=== PATIENT | female | born 1940 | race Caucasian/White ===

== ENCOUNTER → 2016-07-03 | Outpatient (CLI) | payer MEDICARE ==
[2016-07-03 11:10] LABS: Anion Gap 12 mmol/L; Blood Urea Nitrogen 18 mg/dL (7-17); Carbon Dioxide 28 mmol/L (22-30); Chloride 106 mmol/L (98-107); Non-African American GFR(MDRD) >60 (>60 ml/min/1.73 sqM); Potassium 4.9 mmol/L (3.5-5.1); Sodium 146 mmol/L (137-145)
== END | disposition home or self-care (01) ==
LOC: LABPAT 10:19
PROVIDERS: ATTEND Obstetrics & Gynecology
DX: Z01.818 Encounter for other preprocedural examination (principal)
CPT/HCPCS: 80051; 82565; 83735; 84520; 87077; 87086; 87186

== ENCOUNTER 2016-07-11 06:10 | Day surgery (SDC) | payer MEDICARE ==
--- NOTE | 2016-07-06 15:01 | HP ---
DATE OF ADMISSION: 07/11/2016 HISTORY OF PRESENT ILLNESS: This is a 75-year-old white female, 3, para 2-0-1-2 with known pelvic organ prolapse, evolving and progressing over the past several years. The patient is requesting vaginal hysterectomy and cystocele repair. She has a bulge that is continuously present in her undergarments causing irritation and pressure. At times she has to reduce the bulge in order to thoroughly empty bladder and/or bowel. She is menopausal and not taking hormone replacement therapy. She denies postmenopausal bleeding. She is not sexually active at this time. Review of systems is otherwise negative. 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 PAST SURGICAL HISTORY: Significant for breast aspiration, breast biopsies, breast cystectomy, cholecystectomy, foot surgery of the right foot for fracture, heel spur removal of the left foot, left knee arthroscopy, left knee replacement, lithotripsy, tubal ligation, and right salpingo-oophorectomy for ectopic . CURRENT MEDICATIONS: 1. Aleve 220 mg capsules twice daily. 2. Aspirin daily. 3. Calcium supplement daily. 4. Atorvastatin 80 mg pills at bedtime. 5. Timolol ophthalmic drops. 6. Travatan 0.004% ophthalmic drops in the evening. ALLERGIES INCLUDE PENICILLIN to which she reports diarrhea and vomiting, no other known medical allergies. FAMILY HISTORY: Significant for breast cancer, diabetes, and hypertension. Reproductive history is significant for 2 term vaginal deliveries, uncomplicated, along with ectopic treated by salpingectomy. SOCIAL HISTORY: Patient has never been a smoker. She drinks alcohol occasionally. She is retired. On exam, this is a pleasant, elderly female, 5 feet 7 inches, 144 pounds, BMI 22. Blood pressure 132/98 in the seated position. The general physical exam is within normal limits. The chest is clear to auscultation in all soriano anteriorly and posteriorly. Neck exam reveals no lymphadenopathy, normal sized thyroid, no obvious masses, good range of motion. There is good dentition noted. HEENT examination is otherwise negative. Breasts are atrophic, bilaterally symmetric, no skin dimpling, nipple discharge, axillary adenopathy or discernible lesions or masses. The cardiac exam reveals regular rate and rhythm with no murmur, click or rub. The abdomen is soft and nontender, no organosplenomegaly, no CVA tenderness, active bowel sounds, no hernias present. EXTERNAL GENITALIA: Normal in appearance for age, overall atrophic, with a grade 4 cystocele and a grade 3 to 4 uterine prolapse noted. There is no obvious rectocele noted. The cervix is multiparous in appearance, without lesions, masses or discharge. Adnexa are smooth small, nontender, mobile and equal bilaterally. Rectal exam reveals good sphincter tone, no hemorrhoids, no rectal masses, FIT negative stool. IMPRESSION: Increasingly symptomatic cystocele and uterine prolapse, patient at this time, requesting vaginal hysterectomy and cystocele repair. PLAN: I have reviewed with the patient in detail the risks, benefits, and alternatives to this surgery. She is declining the option of pessary use. The ACOG pamphlet have been given to the patient for her review. We have reviewed the risks to include, but not be exclusive of bleeding, infection, perforation or damage to the bowel, bladder, ureters, blood vessels, or indeed any pelvic or abdominal organs. We reviewed the unlikely but possible need for blood transfusion and the infectious diseases to which she would be exposed including hepatitis as well as HIV. A second opinion has been offered and declined. I believe the patient understands these risks and considerations, along with the risks of anesthesia, aspiration, nerve damage or even . Second opinion has been offered and declined. All questions answered. We will therefore proceed with vaginal hysterectomy and anterior colporrhaphy on Sabrina on Sunday07/11/[address] [facility] [place].
[2016-07-10 07:54] VITALS: BMI 22.1
[~2016-07-11 06:10] MED LIST: CLINDAMYCIN 900 MG in DEXTROSE 5% IN WATER 50 ML IVPB ONE; DEXAMETHASONE SOD PHOSPHATE 10 MG/ML 1 ML VIAL IV ONE; HYDROmorphone 1 MG/ML 1 ML SYRINGE IVP PRN; MIDAZOLAM 2 MG/2 ML VIAL IV PRN; ONDANSETRON 4 MG/2 ML VIAL IVP ONE
[2016-07-11] MEDS: LACTATED RINGERS 1,000 ML IV SCH ×2 (06:53→10:39)
[2016-07-11] MEDS ORDERED: LIDOCAINE 1% 20 ML VIAL (10MG/ML) FOR IV START INTRADERMA ONE (06:54)
[2016-07-11 07:03] LABS: Basophils % (A) 1 %; CH 29.3; CHCM 33.3; Eosinophils # (A) 0.2 k/uL (0-0.7); Eosinophils % (A) 3 %; HCT 38.9 % (34.0-46.0); HDW 2.54; HGB 12.8 gm/dL (11.4-16.0); Luc # (Auto) 0.14; Luc % (Auto) 3; Lymphocytes # (A) 1.1 k/uL (1.0-4.8); Lymphocytes % (A) 22 %; MCH 29.2 pg (25.0-35.0); MCV 88.4 fL (80.0-100.0); Mean Platelet Volume 9.2; Monocytes # (A) 0.3 k/uL (0-1.0); Monocytes % (A) 6 %; Neutrophils # (A) 3.3 k/uL (1.3-7.7); Neutrophils % (A) 66 %; RBC 4.39 m/uL (3.80-5.40); RDW 14.1 % (11.5-15.5); WBC (Perox) 5.35
[2016-07-11] MEDS ORDERED: KETAMINE 10 MG/ML 20 ML VIAL ONE (07:22)
[2016-07-11] MEDS ORDERED: MIDAZOLAM 2 MG/2 ML VIAL ONE (07:22)
[2016-07-11] MEDS ORDERED: MORPHINE SULFATE (PF) 0.3 MG/0.3 ML SYR ONE (07:22)
[2016-07-11] MEDS ORDERED: PROPOFOL 10 MG/ML 20 ML VIAL IV ONE (07:22)
[2016-07-11] MEDS ORDERED: KETOROLAC 30 MG/ML 1 ML VIAL ONE (07:22)
[2016-07-11] MEDS ORDERED: fentaNYL (PF) 50 MCG/ML 2 ML AMP ONE (07:22)
[2016-07-11] MEDS ORDERED: VASOPRESSIN 20 UNIT/ML 1 ML VIAL SQ ONE (07:40)
[2016-07-11] MEDS ORDERED: BACITRACIN 500 UNIT/GM OINT 28.4 GM TUBE TOPICAL ONE (07:48)
[2016-07-11] MEDS ORDERED: LACTATED RINGERS 1,000 ML IV ONE (08:11)
[2016-07-11] MEDS ORDERED: ZOLPIDEM 5 MG TAB PO PRN (08:31)
[2016-07-11] MEDS ORDERED: METOCLOPRAMIDE 5 MG/ML 2 ML VIAL IVP PRN (08:31)
[2016-07-11] MEDS ORDERED: Acetaminophen-Codeine 300-30mg TAB PO PRN (08:31)
[2016-07-11] MEDS ORDERED: SIMETHICONE 80 MG CHEWABLE PO PRN (08:31)
--- NOTE | 2016-07-11 08:31 | P.OP ---
Date of Procedure: 07/11/16 Preoperative Diagnosis: Increasingly symptomatic grade 3 uterine prolapse, grade 4 cystocele. Postoperative Diagnosis: Normal-appearing atrophic ovaries bilaterally. Procedure(s) Performed: Vaginal hysterectomy, anterior repair. Anesthesia: spinal Surgeon: Anaya Grissom Automatic Developer #1: Abigail Little Estimated Blood Loss (ml): 20 IV fluids (ml): 800 Urine output (ml): 200 Pathology: other (Cervix and uterus) Condition: stable Disposition: PACU Description of Procedure: Patient is brought to the operating suite where a spinal with Duramorph is given. She's placed in the dorsal lithotomy position. Antibiotics are given. Stockings placed on the legs per protocol. The appropriate timeout is performed to assure proper patient and procedural identification. Perineal body is prepped and draped in usual sterile fashion. Bladder is drained for approximately 200 mL of urine. Weighted speculum was placed into the vagina and the anterior lip of the cervix is grasped with a double-tooth tenaculum. The cervix is injected circumferentially with dilute Pitressin solution. A [place] blade scalpel is used to incise circumferentially with a V like positioning in the back. Sponge rolled finger is used to sweep the overlying mucosa from the underlying fascial plane. At all times the bladder is Well from the operative field to avoid bladder and/or ureteral injury. Peritoneum was entered posteriorly and suture tied with 2-0 Vicryl. Weighted speculum is then placed into the peritoneal cavity. The right uterosacral cardinal ligament is identified, clamped and held with a 0 Vicryl suture laterally. Same procedure is carried out on the opposite uterosacral cardinal ligament complex. Uterine vasculature is identified, clamped cut and suture ligated. 2 additional pedicles are taken superior to the vessels. Anterior peritoneum is entered. Uterus is "walked out" posteriorly. Sabiha clamps are used across the final ligaments and the specimen is removed. 0 Vicryl sutures used to tie, flashed, and retied a pedicles for excellent hemostasis. Sponge stick is then used and bilateral ovaries are inspected, noted to be atrophic and symmetric. They are left in situ as they are well suspended and normal to inspection. Speculum is then changed to the shallow billed speculum and the previously placed 2-0 Vicryl suture is brought around in a pursestring fashion to close the peritoneal cavity. Hemostasis is excellent. Anterior repair is then started. Metzenbaum scissors used in the midline to undermine the mucosa. Allis clamps are used in a fanlike fashion to hold the mucosa laterally. Sponge rolled finger is used to develop the plane between the overlying mucosa and the fascia. 2-0 Vicryl sutures used to bring the fascial edges together in an interrupted fashion. Herrera catheter is placed and urine is clear. Once the repair is completed, Metzenbaum scissors are used to trim the redundant mucosa. 2-0 Vicryl is used in a running locking fashion to close the mucosa for excellent reapproximation and hemostasis. Vagina is packed with a 1 inch iodophor gauze with basic tracing. All sponge needle and enhancement counts are correct. Total urine output 200 mL, total fluid replacement 800 mL, estimated blood loss 20 mL's. Patient is brought back to recovery room in very good condition with stable vital signs including pulse of 80, blood pressure 105 /55, respirations 16 and 97% O2 saturation.
[2016-07-11] MEDS ORDERED: NALOXONE 0.4 MG/ML 1 ML VIAL IV PRN (08:51)
[2016-07-11] MEDS ORDERED: MORPHINE SULFATE 4 MG/ML SYRINGE IVP PRN (08:51)
[2016-07-11] MEDS ORDERED: NALBUPHINE 10 MG/ML AMPUL IV PRN (08:51)
[2016-07-11] MEDS: diphenhydrAMINE 50 MG/ML 1 ML VIAL IVP PRN ×2 (12:32→19:20)
[2016-07-11] MEDS: KETOROLAC 30 MG/ML 1 ML VIAL IVP PRN (21:32)
[2016-07-11] MEDS: NITROFURANTOIN MONOHYD/M-CRYST 100 MG CAP PO SCH (21:32)
[2016-07-12] MEDS: diphenhydrAMINE 50 MG/ML 1 ML VIAL IVP PRN (01:45)
[2016-07-12] MEDS: LACTATED RINGERS 1,000 ML IV SCH (01:45)
[2016-07-12] MEDS: KETOROLAC 30 MG/ML 1 ML VIAL IVP PRN (06:43)
[2016-07-12] MEDS: ACETAMINOPHEN TAB 325 MG TAB PO PRN ×2 (06:49→10:59)
--- NOTE | 2016-07-12 07:57 | P.DS ---
Providers Date of admission: 07/11/16 Expected date of discharge: 07/12/16 Attending physician: Anaya Grissom Primary care physician: [facility] Course: This 75-year-old white female presented with an increasingly symptomatic perineal bulge. She was noted to have a grade 3 uterine prolapse, and a grade 4 cystocele. After preoperative discussion, she elected to proceed with surgical repair. Please see my dictated history and physical for further details. Patient was admitted and underwent a vaginal hysterectomy and anterior colporrhaphy under my care. She did well intraoperatively with an estimated blood loss of 20 mL's. Ovaries appeared normal to inspection and therefore were left in situ per her wishes. There were no intraoperative complications, please see my dictated operative note for details. This morning the patient is doing well. Herrera catheter has been discontinued, vaginal pack is discontinued, IV is discontinued. Diet and activity are both advanced. Her vital signs are stable and she is afebrile. There is only scant vaginal drainage noted. Bladder training has commenced. Abdomen is soft, nontender, active bowel sounds, no CVA tenderness. Extremities reveal no edema. Chest is clear. Bladder training has commenced at this time. Patient will be monitored through the day, and if post void residuals are low will be discharged home later today. I have reminded her no intercourse, tampons or douching. She will resume all of her home medications at this point. She will use over-the- counter Aleve or Advil as needed for pain, 2 pills with abundant fluids. She will call with any fevers shakes or chills, foul smelling or copious vaginal drainage, with any pain not alleviated by [id number] medications, or indeed with any concerns. Patient Condition at Discharge: Good Plan - Discharge Summary Discharge Medication List Aspirin 81 mg PO DAILY 07/10/16 [History] Atorvastatin [Lipitor] 80 mg PO HS 07/10/16 [History] Calcium Carbonate [Calcium] 600 mg PO DAILY 07/10/16 [History] Naproxen Sodium [Aleve] 220 mg PO BID PRN 07/10/16 [History] Nitrofurantoin Monohyd/M-Cryst [Macrobid] 100 mg PO Q12HR 07/10/16 [History] Timolol 0.25% Ophth Soln [Timoptic 0.25% Ophth Soln] 1 drop BOTH EYES BID [History] Travoprost [Travatan Z 0.004%] 1 drop BOTH EYES DAILY 07/10/16 [History] Vit A/Vit C/Vit E/Zinc/Copper [ICAPS SOFTGEL] 1 cap PO DAILY 07/10/16 [History] Follow up Appointment(s)/Referral(s): Anaya Grissom MD [STAFF PHYSICIAN] - 2 Weeks Patient Instructions/Handouts: Anterior Vaginal Repair (DC), Hysterectomy (DC)
[2016-07-12 08:42] VITALS: BP 135/67; PULSE 82; RESP 16; TEMP 97.8
--- NOTE | 2016-07-12 09:07 | P.PN ---
Progress Note - Text 0700 Anesthesia POD 1. Patient is status post vaginal hysterectomy under spinal anesthesia with intra-thecal preservative free morphine 300 g. Minimal pruritus, good post-op analgesia, and no headache or other complication.
[2016-07-12] MEDS: NITROFURANTOIN MONOHYD/M-CRYST 100 MG CAP PO SCH (09:19)
== END 2016-07-12 11:05 | disposition home or self-care (01) ==
LOC: OR 06:10 → 6PED 08:33 → OR 07-12 11:05
PROVIDERS: ATTEND Obstetrics & Gynecology
DX: N81.3 Complete uterovaginal prolapse (principal); D26.1 Other benign neoplasm of corpus uteri; D25.2 Subserosal leiomyoma of uterus; N80.0 Endometriosis of uterus; E78.5 Hyperlipidemia, unspecified; Z79.82 Long term (current) use of aspirin; Z79.899 Other long term (current) drug therapy; Z88.0 Allergy status to penicillin; N72 Inflammatory disease of cervix uteri
CPT/HCPCS: 85025; 88307; 58260; J2250; J1200 ×2; J1100; J2405; J2274; J3010; J1885 ×2; J2704

== ENCOUNTER → 2019-06-19 | Outpatient (CLI) | payer MEDICARE ==
[2019-06-19 14:05] VITALS: BP 129/62; PULSE 76; RESP 18; TEMP 97.6
--- NOTE | 2019-06-19 14:55 | P.GSHP ---
History of Present Illness H&P Date: 06/19/19 Chief Complaint: History of stage IA invasive right breast cancer Sabrina 78-year-old white female seen in consultation for Dr. Ridley who is status post right breast lumpectomy/radiation and chemotherapy for stage I invasive ductal cancer. States he did not have any hormonal therapy. The surgery was done approximately 10 years ago at [facility]. She is not complaining of any changes in her breast at this time, but does state that the breasts are very asymmetric. The asymmetry of the breasts causes difficulty with wearing clothes. She also has shoulder notching on the left side as well as back pain. She had a bilateral mammogram performed in February 2019 and this was felt to be benign BIRADS 2. She has no nipple discharge or skin changes of concern. Again the right breast is smaller than the left breast approximately 2 bra sizes. Family history: Patient: right breast Father: Prostate cancer Maternal cousin: Breast cancer Second maternal cousin: Breast cancer Paternal aunt: Pancreatic cancer Paternal uncle: Kidney cancer Paternal uncle: Lungs and esophagus cancer Hormonal history: Menarche: 11 , one ectopic , first child born at age 19, press-fit: No Menopause: 51: Ovary removed at ectopic , hysterectomy at 75, left ovary did not get removed Procedure plus: 20 years Hormones: 10 years off them now since 51 Surgical history: Right breast lumpectomy and sentinel node biopsy 2. Hysterectomy 3. Right nephrectomy at time of ectopic 4. Replacement 5. Kidney stones lithotripsy 6. Cholecystectomy 7. Bladder suspension 8. Left breast open biopsy Medical history: Fecal incontinence at times High cholesterol Follows with cardiology Social history: Smoke: Negative Alcohol: Weekly Drugs: Negative - Constitutional Constitutional: Denies chills, Denies fever - EENT Comment: Glaucoma/macular degeneration Ears: bilateral: decreased hearing Ears, nose, mouth and throat: Reports headache - Breasts Breasts: bilateral: as per HPI - Cardiovascular Comment: follows with cardiology - Respiratory Respiratory: Denies cough, Denies 7 - Gastrointestinal Gastrointestinal: Denies abdominal pain, Denies diarrhea, Denies nausea, Denies vomiting - Genitourinary (Female) Genitourinary: Reports kidney stones - Menstruation Menstruation: Reports post hysterectomy - Musculoskeletal Comment: arthritis - Integumentary Integumentary: Denies pruritus, Denies rash - Neurological Neurological: Denies numbness, Denies weakness - Psychiatric Psychiatric: Reports depression - Endocrine Endocrine: Denies fatigue, Denies weight change - Hematologic/Lymphatic Comment: aspirin - Allergic/Immunologic Allergic/Immunologic: Reports as per HPI Past Medical History History of Any Multi-Drug Resistant Organisms: MRSA Date of last positivie culture/infection: 11/18/18 MDRO Source:: MRSA URINE Smoking Status: Never smoker Medications and Allergies Home Medications Medication Instructions Recorded Confirmed Type Aspirin 81 mg PO DAILY 07/10/16 06/19/19 History Atorvastatin [Lipitor] 80 mg PO HS 07/10/16 06/19/19 History Timolol 0.25% Ophth Soln [Timoptic 1 drop BOTH EYES BID 07/10/16 06/19/19 History 0.25% Ophth Soln] Travoprost [Travatan Z 0.004%] 1 drop BOTH EYES DAILY 07/10/16 06/19/19 History Vit A/Vit C/Vit E/Zinc/Copper 1 cap PO DAILY 07/10/16 06/19/19 History [ICAPS SOFTGEL] Acetaminophen [Tylenol] 325 mg PO DAILY 06/19/19 06/19/19 History Escitalopram [Lexapro] 10 mg PO DAILY 06/19/19 06/19/19 History Allergies Allergy/AdvReac Type Severity Reaction Status Date / Time Penicillins AdvReac Nausea & Verified 06/19/19 14:05 Vomiting & Diarrhea Surgical - Exam Vital Signs Temp Pulse Resp BP Pulse Ox 97.6 F 76 18 129/62 96 06/19/19 13:59 06/19/19 13:59 06/19/19 13:59 06/19/19 13:59 06/19/19 13:59 BMI 25.3 - General well developed, well nourished, no distress - Eyes normal ocular movement - ENT no hearing loss, no congestion - Neck no masses, trachea midline - Respiratory normal expansion, normal respiratory effort, clear to auscultation - Cardiovascular Rhythm: regular Heart Sounds: normal: S1, S2 - Abdomen Abdomen: soft, non tender, no guarding, no rigid, no rebound - Integumentary normal turgor - Neurologic no disoriented, no combative - Musculoskeletal normal gait, normal posture - Psychiatric oriented to time, oriented to person, oriented to place, speech is normal, memory intact Breast examination: Bra 38C ptosis left side grade 3, right side grade 1/2 Inspection: Patient status post right lumpectomy and radiation therapy/incision well-healed, patient is doing well however there is marked asymmetry with the left breast being larger than the right breast Palpation: Right breast: Changes noted from prior lumpectomy and radiation therapy no dominant masses or nodules of concern Right axilla: No adenopathy of concern Left breast: Larger than right breast, palpation multiple positional exam no dominant masses or nodules of concern Left axilla: No adenopathy of concern Results mammogram reviewed form Assessment and Plan Assessment: Impression: 1. Patient status post right breast lumpectomy/radiation therapy/chemoth erapy/no hormonal therapy/stage I breast cancer 10 years ago 2. No evidence of recurrent cancer 3. Asymmetry of the breast resulting in back pain/shoulder notching/difficulty finding clothes to fit 4. Fibrocystic breast changes 5. Family history of cancer Plan: 1. Patient does not have any evidence of recurrent cancer at this time 2. Patient is interested in this symmetry procedure secondary to the difference in size between the breast 3. Patient to have medical clearance 4. Patient is going to be going to assure that insurance company will cover this CC: Dr. Ridley Risks and benefits of reduction mammoplasty discussed with the patient. She understands and wishes to proceed. His include but are not limited to bleeding infection reaction to the anesthetic. She understands the breast will not be completely symmetric but will be closer in size and they are now. She may have some loss of sensation to the nipple as well. The breast was marked using a marking pen to delineate lines for a Rose pattern reduction mammoplasty in discussion with the patient. encounter 50 minutes, > 50% of time in planning and counselling Time with Patient: Greater than 30
== END ==
LOC: WWCWWP 13:37
PROVIDERS: ATTEND Surgery
DX: Z53.9 Procedure and treatment not carried out, unspecified reason (principal)

== ENCOUNTER → 2020-03-25 | Outpatient (CLI) | payer MEDICARE ==
[2020-03-25 09:51] VITALS: BP 134/67; PULSE 75; RESP 18; TEMP 97.4
--- NOTE | 2020-03-25 10:43 | P.PN ---
Subjective Progress Note Date: 03/25/20 Principal diagnosis: prior history of right breast cancer Sabrina is an 79-year-old white female who was status post right breast lumpectomy/radiation and chemotherapy for stage I invasive ductal cancer. She did not have any hormonal therapy. The surgery was done approximately [address] [facility]. She was not complaining of any changes in her breast when initially seen, but did state that the breasts were very asymmetric. The asymmetry of the breasts caused difficulty with wearing clothes. She also has shoulder notching on the left side as well as back pain. She had a bilateral mammogram performed in February 2019 and this was felt to be benign BIRADS 2. She has no nipple discharge or skin changes of concern. Again the right breast is smaller than the left breast approximately 2 bra sizes. She had a bilateral mammogram done on 03-17-20 which was benign BIRAD 2. She has left shoulder notching related to the large size of the left breast and asymmetry as well as a complaint of back pain. Family history: Patient: right breast Father: Prostate cancer Maternal cousin: Breast cancer Second maternal cousin: Breast cancer Paternal aunt: Pancreatic cancer Paternal uncle: Kidney cancer Paternal uncle: Lungs and esophagus cancer Hormonal history: Menarche: 11 , one ectopic , first child born at age 19, press-fit: No Menopause: 51: Ovary removed at ectopic , hysterectomy at 75, left ovary did not get removed Procedure plus: 20 years Hormones: 10 years off them now since 51 Surgical history: Right breast lumpectomy and sentinel node biopsy 2. Hysterectomy 3. Right oophrectomy at time of ectopic 5. Kidney stones lithotripsy 6. Cholecystectomy 7. Bladder suspension 8. Left breast open biopsy Medical history: Fecal incontinence at times High cholesterol Follows with cardiology Social history: Smoke: Negative Alcohol: Weekly Drugs: Negative - Constitutional Constitutional: Denies chills, Denies fever - EENT Comment: Glaucoma/macular degeneration Ears: bilateral: decreased hearing Ears, nose, mouth and throat: Reports headache - Breasts Breasts: bilateral: as per HPI - Cardiovascular Comment: follows with cardiology - Respiratory Respiratory: Denies cough - Gastrointestinal Gastrointestinal: Denies abdominal pain, Denies diarrhea, Denies nausea, Denies vomiting - Genitourinary (Female) Genitourinary: Reports kidney stones - Menstruation Menstruation: Reports post hysterectomy - Musculoskeletal Comment: arthritis - Integumentary Integumentary: Denies pruritus, Denies rash - Neurological Neurological: Denies numbness, Denies weakness - Psychiatric Psychiatric: Reports depression - Endocrine Endocrine: Denies fatigue, Denies weight change - Hematologic/Lymphatic Comment: aspirin - Allergic/Immunologic Allergic/Immunologic: Reports as per HPI Objective - Vital Signs Vital signs: Vital Signs Temp 97.4 F L 03/25/20 09:48 Pulse 75 03/25/20 09:48 Resp 18 03/25/20 09:48 BP 134/67 03/25/20 09:48 Pulse Ox 98 03/25/20 09:48 Intake & Output 03/24/20 03/25/20 03/25/20 18:59 06:59 18:59 Weight 73.482 kg - Exam BMI 25.8 - Constitutional General appearance: Present: average body habitus - EENT Eyes: Present: EOMI ENT: Present: hearing grossly normal - Neck Neck: Present: normal ROM - Respiratory Respiratory: bilateral: CTA - Cardiovascular Rhythm: regular Heart sounds: normal: S1, S2 - Gastrointestinal General gastrointestinal: Present: normal bowel sounds, soft - Integumentary Integumentary: Present: normal turgor - Musculoskeletal Musculoskeletal: Present: gait normal - Psychiatric Psychiatric: Present: A&O x's 3, appropriate affect, intact judgment & insight - Additional findings Additional findings: Breast Exam: BRA: BRA right 38A/B, left 38C/D Inspection: Right breast smaller than left breast, nipple areolar complex approximately 2-1/2 cm lower on the left than on the right Palpation: Right breast: Multiple positional exam fibrocystic changes, no evidence of recurrent cancer Right axilla: No adenopathy of concern Left breast: Multiple positional exam fibrocystic changes, no dominant masses or nodules of concern Left axilla: No adenopathy of concern Assessment and Plan Assessment: Impression: Fecal incontinence at times High cholesterol Follows with cardiology no evidence of recurrent cancer right breast marked asymmetry of the breast back pain shoulder notching left shoulder Plan: 1. repeat mammogram in one year 2. pereira pattern reduction mamoplasty secondary to asymmetry related to cancer resection right breast CC: Dr. Ridley Risk and benefits of reduction mammoplasty were discussed with the patient. Markings were placed to show where the incisions would be. She understands and wishes to proceed. This will be scheduled in the near future. encounter 25 mintues, > 50% of time in planning and counselling
== END | disposition home or self-care (01) ==
LOC: WWCWWP 09:38
PROVIDERS: ATTEND Surgery
DX: Z53.9 Procedure and treatment not carried out, unspecified reason (principal)

== ENCOUNTER → 2021-10-13 | Outpatient (CLI) | payer MEDICARE ==
--- NOTE | 2021-10-13 10:11 | FL ---
ESOPHOGRAM. HISTORY: Dysphagia Esophagram was performed per the air contrast technique. The patient swallowed barium and effervesce nt crystals without difficulty or delay. Esophageal peristalsis and motility appear to be within normal limits. There is no evidence for filling defect, mass or diverticulum. No hiatal hernia seen. Subsequently single contrast cervical esophagram was performed which fails demonstrate evidence for a spiration penetration or mass. IMPRESSION: Unremarkable study.
== END | disposition home or self-care (01) ==
LOC: RADUSWWP 08:58
PROVIDERS: ATTEND Family Medicine
DX: R13.10 Dysphagia, unspecified (principal)
CPT/HCPCS: 74220

== ENCOUNTER → 2024-06-11 | Outpatient (CLI) | payer MEDICARE ==
--- NOTE | 2024-06-11 15:30 | XR ---
EXAMINATION TYPE: XR KUB DATE OF EXAM: 06/11/2024 3:20 PM COMPARISON: 05/27/2024 CLINICAL INDICATION: Female, 83 years old with history of calculus, TECHNIQUE: XR KUB view(s) obtained. FINDINGS: Moderate fecal retention is through the colon. Multiple calcifications overlying the bilateral kidneys. The largest on the left is at the upper kristi e region measuring 0.4 cm. Largest on the right is at the upper pole measuring up to 1.1 cm. Addition al smaller calcifications are present bilaterally. Cholecystectomy clips are in the right upper quadrant. Psoas margins are normal. No organomegaly is present. IMPRESSION: 1. Moderate fecal retention. 2. Multiple bilateral renal stones. [facility], , 06/11/2024 3:28 PM
== END | disposition home or self-care (01) ==
LOC: RADXRMAIN 14:55
PROVIDERS: ATTEND Urology
DX: N20.2 Calculus of kidney with calculus of ureter (principal)
CPT/HCPCS: 74018

== ENCOUNTER → 2024-06-12 | Outpatient (CLI) | payer MEDICARE ==
--- NOTE | 2024-06-12 13:21 | XR ---
EXAMINATION TYPE: XR KUB DATE OF EXAM: 06/12/2024 11:48 AM COMPARISON: None. CLINICAL INDICATION: Female, 83 years old with history of N20.0, N20.1, TECHNIQUE: XR KUB view(s) obtained. FINDINGS: There is a normal bowel gas pattern. Psoas margins are normal. No organomegaly is present. There is a 1.3 cm calcification over the inferior pole right kidney. Additional right upper pole calc ifications also present. Multiple scattered calcifications overlie left kidney. These appear stable f rom comparison IMPRESSION: 1. Multiple bilateral renal stones [facility], , 06/12/2024 1:18 PM
== END | disposition home or self-care (01) ==
LOC: RADXRMAIN 11:27
PROVIDERS: ATTEND Urology
DX: N20.2 Calculus of kidney with calculus of ureter (principal)
CPT/HCPCS: 74018

== ENCOUNTER → 2024-09-16 | Outpatient (CLI) | payer MEDICARE ==
[2024-09-16 18:28] LABS: BUN/Creat Ratio 18.89 Ratio (12.00-20.00); Carbon Dioxide 22.7 mmol/L (21.6-31.8); Chloride 101 mmol/L (96-109); Glucose 140 mg/dL (70-110); Potassium 4.3 mmol/L (3.5-5.5); Sodium 138 mmol/L (135-145)
[2024-09-16 18:59] LABS: Basophils # (A) 0.04 X 10*3/uL (0.00-0.10); Basophils % (A) 0.6 %; Eosinophils # (A) 0.11 X 10*3/uL (0.04-0.35); Eosinophils % (A) 1.6 %; HCT 41.1 % (37.2-46.3); HGB 12.5 g/dL (12.0-15.0); Lymphocytes # (A) 1.25 X 10*3/uL (0.90-5.00); Lymphocytes % (A) 18.7 %; MCH 28.6 pg (27.0-32.0); MCHC 30.4 g/dL (32.0-37.0); MCV 94.1 FL (80.0-97.0); Mean Platelet Volume 11.7 FL (9.5-12.2); Monocytes # (A) 0.54 X 10*3/uL (0.20-1.00); Monocytes % (A) 8.1 %; NRBC Per 100 WBC 0 X 10*3/uL (0.00-0.01); Neutrophils # (A) 4.72 X 10*3/uL (1.80-7.70); Neutrophils % (A) 70.6 %; Platelet Count 365 X 10*3/uL (140-440); RBC 4.37 X 10*6/uL (4.10-5.20); RDW 14.1 % (11.5-14.5); WBC 6.69 X 10*3/uL (4.50-10.00)
[2024-09-16 22:18] LABS: Appearance,Urine Turbid (Clear); Bilirubin,Urine Negative (Negative); Blood,Urine Large (Negative); Color,Urine Yellow (Yellow); Ketones,Urine Negative (Negative); Nitrite,Urine Negative (Negative); PH, Urine 5.5; Specific Gravity,Urine 1.012 (1.001-1.030); Urobilinogen,Urine 0.2 E.U./DL
[2024-09-16 22:41] LABS: Bacteria,Urine 3+ (None Seen)
== END | disposition home or self-care (01) ==
LOC: LABPAT 15:49
PROVIDERS: ATTEND Urology
DX: Z01.812 Encounter for preprocedural laboratory examination (principal); N20.1 Calculus of ureter
CPT/HCPCS: 80048; 81001; 85025; 87077; 87086; 87186

== ENCOUNTER 2024-09-24 08:14 | Day surgery (SDC) | payer MEDICARE ==
[2024-09-22 14:32] VITALS: BMI 25.7
--- NOTE | 2024-09-23 19:48 | P.GSHP ---
History of Present Illness H&P Date: 09/23/24 84 yo female history of stones recently had a ct scan for pain that showed bilateral distal ureteral stones. Dhe comes for bilateral ureteroscopy with laser lithotripsy and possible stent placement. - Constitutional Constitutional: Denies chills, Denies fever - EENT Eyes: denies blurred vision, denies pain Ears, nose, mouth and throat: Denies headache, Denies sore throat - Cardiovascular Cardiovascular: Denies chest pain, Denies shortness of breath - Respiratory Respiratory: Denies cough, Denies 7 - Gastrointestinal Gastrointestinal: Denies abdominal pain, Denies diarrhea, Denies nausea, Denies vomiting - Genitourinary (Female) Genitourinary: Denies dysuria, Denies hematuria - Genitourinary (Male) Genitourinary: Denies dysuria, Denies hematuria - Musculoskeletal Musculoskeletal: Denies myalgias - Integumentary Integumentary: Denies pruritus, Denies rash - Neurological Neurological: Denies numbness, Denies weakness - Psychiatric Psychiatric: Denies anxiety, Denies depression - Endocrine Endocrine: Denies fatigue, Denies weight change Past Medical History Past Medical History: Cancer, Hearing Disorder / Deafness, Hyperlipidemia Additional Past Medical History / Comment(s): HEART MURMUR, KIDNEY STONES, RIGHT BREAST CANCER WITH CHEMO/RADIATION 2010 History of Any Multi-Drug Resistant Organisms: MRSA Date of last positivie culture/infection: 11/18/18 MDRO Source:: MRSA URINE Past Surgical History: Breast Surgery, Cholecystectomy, Hysterectomy Additional Past Surgical History / Comment(s): D&C, SALPINGECTOMY/OOPHORECTOMY FROM ECTOPIC, LITHOTRIPSY, RIGHT LUMPECTOMY Past Anesthesia/Blood Transfusion Reactions: Postoperative Nausea & Vomiting (PONV) Past Psychological History: Anxiety Smoking Status: Never smoker Past Alcohol Use History: Occasional Past Drug Use History: None Reported Medications and Allergies Home Medications Medication Instructions Recorded Confirmed Type Aspirin 81 mg PO HS 07/10/16 09/22/24 History Atorvastatin [Lipitor] 80 mg PO HS 07/10/16 09/22/24 History Travoprost [Travatan Z 0.004%] 1 drop BOTH EYES DAILY 07/10/16 09/22/24 History Vit A/Vit C/Vit E/Zinc/Copper 2 cap PO DAILY 07/10/16 09/22/24 History [ICAPS SOFTGEL] Escitalopram [Lexapro] 10 mg PO DAILY 06/19/19 09/22/24 History Cholecalciferol [Vitamin D3 (25 4,000 unit PO DAILY 03/25/20 09/22/24 History Mcg = 1000 Iu)] Acetaminophen [Tylenol Arthritis] 2 tab PO BID 09/22/24 09/22/24 History Biotin 2,500 mcg PO DAILY 09/22/24 09/22/24 History Famotidine 20 mg PO W/SUPPER 09/22/24 09/22/24 History Allergies Allergy/AdvReac Type Severity Reaction Status Date / Time amoxicillin AdvReac Nausea & Verified 09/22/24 14:15 Vomiting & Diarrhea Penicillins AdvReac Nausea & Verified 09/22/24 14:15 Vomiting & Diarrhea Surgical - Exam - General well developed, well nourished, no distress - Eyes normal ocular movement, no icteric - ENT no hearing loss, no congestion - Neck no masses, trachea midline - Respiratory normal respiratory effort, clear to auscultation - Abdomen Abdomen: soft, non tender, no guarding, no rigid, no rebound - Integumentary no rash, no abnormal pigmentation - Neurologic no disoriented, no combative - Psychiatric oriented to time, oriented to person, oriented to place, speech is normal, memory intact Results - Imaging CT scan - abdomen: report reviewed, image reviewed CT scan - pelvis: report reviewed, image reviewed Assessment and Plan Assessment: Impression: Bilateral distal ureteral stones Plan: cysto with bilateral ureteroscopy withlaser lithotriopsy with possible stents
[~2024-09-24 08:14] MED LIST changes: -CLINDAMYCIN 900 MG in DEXTROSE 5% IN WATER 50 ML IVPB ONE; -DEXAMETHASONE SOD PHOSPHATE 10 MG/ML 1 ML VIAL IV ONE; +HYDROmorphone 0.5 MG/0.5 ML SYRINGE IVP PRN; -HYDROmorphone 1 MG/ML 1 ML SYRINGE IVP PRN; +LIDOCAINE 1% (10MG/ML) FOR IV START INTRADERMA PRN; -ONDANSETRON 4 MG/2 ML VIAL IVP ONE; +fentaNYL (PF) 50 MCG/ML 2 ML AMP IVP PRN
--- NOTE | 2024-09-24 08:34 | XR ---
EXAMINATION TYPE: XR KUB DATE OF EXAM: 09/24/2024 8:29 AM COMPARISON: 06/12/2024. CLINICAL INDICATION: Female, 84 years old with history of N20.1 bilateral ureteral stone; TECHNIQUE: One radiographic view of the abdomen was obtained. FINDINGS: The bowel gas pattern is nonspecific without dilated loops of small or large bowel. . Fecal material and gas are demonstrated throughout the colon and rectum. There is no evidence for organome [place] or pneumoperitoneum. No acute osseous process. Bilateral renal calculi measuring up to 7 mm on the right and 7 mm on the left. Right upper quadrant cholecystectomy clips. IMPRESSION: Nonspecific bowel gas pattern without radiographic evidence for acute process. [facility], , 09/24/2024 8:31 AM
[2024-09-24] MEDS: IV FLUID CONTINUATION 1,000 ML IV ONE (08:59)
[2024-09-24] MEDS: LACTATED RINGERS 1,000 ML IV SCH (09:20)
[2024-09-24] MEDS: ONDANSETRON 4 MG/2 ML VIAL IVP ONE (09:24)
[2024-09-24] MEDS: DEXAMETHASONE SOD PHOSPHATE 4 MG/ML 1 ML VIAL IV ONE (09:24)
[2024-09-24] MEDS ORDERED: PROPOFOL 10 MG/ML 20 ML VIAL IV ONE (09:43)
[2024-09-24] MEDS ORDERED: DEXAMETHASONE SOD PHOSPHATE 10 MG/ML 1 ML VIAL ONE (09:43)
[2024-09-24] MEDS ORDERED: LIDOCAINE 1% INJ 10MG/ML (20 ML MDV) ONE (09:43)
[2024-09-24] MEDS ORDERED: ePHEDrine 50 MG/ML 1 ML VIAL ONE (09:43)
[2024-09-24] MEDS ORDERED: fentaNYL (PF) 50 MCG/ML 2 ML AMP ONE (09:43)
[2024-09-24] MEDS ORDERED: GLYCOPYRROLATE 0.2 MG/ML 2 ML VIAL ONE (09:43)
[2024-09-24] MEDS: GENTAMICIN 110 MG in SODIUM CHLORIDE 0.9% 100 ML IVPB PRN (09:46)
[2024-09-24] MEDS: IOPAMIDOL-370 100ML BTL MISCELLANE ONE (10:15)
--- NOTE | 2024-09-24 11:02 | P.OP ---
Date of Procedure: 09/24/24 Preoperative Diagnosis: Bilateral ureteral stones Postoperative Diagnosis: Same Procedure(s) Performed: Cystoscopy, bilateral retrograde pyelogram, bilateral ureteroscopy with laser lithotripsy, bilateral 6 x 24 stent insertion Anesthesia: LUIZA Surgeon: José Miguel Palacios Estimated Blood Loss (ml): 0 Pathology: other (Stone) Condition: stable Disposition: PACU Indications for Procedure: Patient is 84. She has bilateral ureteral stones. KUB today is clear as to whether the stones are still present. She comes for retrograde pyelogram and probable bilateral ureteroscopy Description of Procedure: Patient brought to the operating suite. Given a general anesthetic. Prepped and draped sterilely. Cystoscopy Foroblique lens and 21 English sheath identifies a normal bladder and bladder mucosa. Within a cone-tip catheter a left retrograde pyelogram performed identifying 2-3 distal ureteral stones. I then do a right retrograde pyelogram again with the a cone-tip catheter and there are 2 distal ureteral stones. I then reduced the 7 English mini ureteroscope into the left ureter up to the stones. With the 375 m laser probe the stones are broken into multiple fragments the largest of which are stone basketed. I then introduced the ureteroscope into the right distal ureter and identify the stones. Again with the same 375 m laser probe the stones are broken into tiny fragments the largest of which are basketed. I reintroduced the scope into both ureters and there is a significant amount of edema the stents will be placed I reintroduced the cystoscope and up each ureter past 035 wires. Over each wires passed a 6 x 24 double-J catheter the close in the renal pelvis on both the left and right side and then in the bladder the bladder was drained the patient is awakened and returned recovery in good condition. She will be discharged home upon recovery and follow in the office in 1 week for stent removal
[2024-09-24 11:03] VITALS: TEMP 97.2
--- NOTE | 2024-09-24 11:19 | FL ---
EXAMINATION TYPE: FL urography retrograde DATE OF EXAM: 09/24/2024 10:58 AM COMPARISON: Pre Operative Images if available both CT/MRI or plain film CLINICAL INDICATION: Female, 84 years old with history of N20.1 BILATERAL URETERAL STONE; TECHNIQUE: FL urography retrograde, multiple fluoroscopic images provided for procedure. DAP: 0.70286 mGym2 Gycm2 uGym2 cGycm2 or equivalent. FINDINGS: Multiple intraoperative fluoroscopic images were taken resulting in ureteral stent placement with sup erior pigtail in appropriate position projecting over the renal pelvis. No immediate intraoperative c omplication. Multilevel degeneration changes throughout the spine. IMPRESSION: 1. No evidence for intraoperative complication. 2. Please see the operative/procedural note for further details. [facility], , 09/24/2024 11:17 AM
[2024-09-24 12:27] VITALS: BP 156/78; PULSE 71; RESP 16
[2024-09-24] MEDS: BENZOCAINE/MENTHOL LOZENG 1 EACH LOZENGE MUCOUS MEM PRN (12:35)
== END 2024-09-24 12:53 | disposition home or self-care (01) ==
LOC: OR 08:14
PROVIDERS: ATTEND Urology
DX: N20.1 Calculus of ureter (principal); E78.5 Hyperlipidemia, unspecified; K21.9 Gastro-esophageal reflux disease without esophagitis; F41.9 Anxiety disorder, unspecified; R01.1 Cardiac murmur, unspecified; H91.90 Unspecified hearing loss, unspecified ear; Z91.89 Other specified personal risk factors, not elsewhere classified; Z79.82 Long term (current) use of aspirin; Z79.899 Other long term (current) drug therapy; Z85.3 Personal history of malignant neoplasm of breast; Z86.14 Personal history of Methicillin resistant Staphylococcus aureus infection; Z88.0 Allergy status to penicillin
CPT/HCPCS: 52356; 82365; 74420; 74018; J1100; J2405; J1580; Q9967